=== PATIENT | female | born 1955 | race Caucasian/White ===

== ENCOUNTER → 2019-08-10 | Day surgery (SDC) | payer MEDICARE, OTHER ==
[2019-08-07 12:23] LABS: BASOPHILS # (AUTO) 0.1 (0.0-0.1); BASOPHILS % 0.6 % (0.0-1.0); EOSINOPHILS # (AUTO) 0.2 (0.0-0.4); EOSINOPHILS % 1.7 % (0.0-6.0); HEMATOCRIT 44.4 % (34.2-44.1); HEMOGLOBIN 14.7 g/dL (12.0-16.0); LYMPHOCYTES # (AUTO) 2.5 (1.0-3.2); MEAN CORPUSCULAR HEMOGLOBIN 30.1 pg (28-32); MEAN CORPUSCULAR HGB CONC 33.1 g/dL (31-35); MONOCYTES # (AUTO) 0.8 (0.2-0.8); MONOCYTES % 6.8 % (4.4-11.3); NEUTROPHILS # (AUTO) 8.8 (2.1-6.9); NEUTROPHILS % 70.5 % (38.7-80.0); PLATELET COUNT 233 x10e3/uL (140-360); RED BLOOD COUNT 4.88 x10e6/uL (3.6-5.1); RED CELL DISTRIBUTION WIDTH 12.4 % (11.7-14.4)
[2019-08-07 12:42] LABS: ALANINE AMINOTRANSFERASE 27 IU/L (0-55); ALBUMIN 3.7 g/dL (3.5-5.0); ALBUMIN/GLOBULIN RATIO 1.1 (0.8-2.0); ALKALINE PHOSPHATASE 89 IU/L (40-150); ANION GAP 12.1 mmol/L (8-16); BLOOD UREA NITROGEN 8 mg/dL (7-26); BUN/CREATININE RATIO 10 (6-25); CALCIUM 9.5 mg/dL (8.4-10.2); CARBON DIOXIDE 27 mmol/L (22-29); CHLORIDE 100 mmol/L (98-107); CREATININE, SERUM 0.81 mg/dL (0.57-1.11); EST GLOMERULAR FILTRATION RATE > 60 ML/MIN (60-); GLUCOSE 119 mg/dL (74-118); POTASSIUM 4.1 mmol/L (3.5-5.1); SODIUM 135 mmol/L (136-145)
--- NOTE | 2019-08-07 13:05 | Diagnostic Imaging Report ---
EXAMINATION: CHEST 2 VIEWS INDICATION: Pre-operative COMPARISON: None FINDINGS: LINES/TUBES:None LUNGS:The lungs are well-inflated. No focal consolidation or pulmonary edema. PLEURA:No pleural effusion or pneumothorax. MEDIASTINUM:The cardiomediastinal silhouette appears normal in size and shape. BONES/SOFT TISSUES:No acute osseous injury. ABDOMEN:No free air under the diaphragm. IMPRESSION: No focal pneumonia or pulmonary edema. Signed by: Marek Salguero MD on 08/07/2019 1:02 PM
[~2019-08-10] MED LIST: ASPIRIN81 MG PO; ATORVASTATIN CA20 MG PO; DEXAMETHASONE SOD PHOS INJ 4 MG/ML VIAL ONE; FENTANYL CITRATE/PF 100MCG/2 ML INJ ONE; HYDROCODON-ACE1 EAC9 PO; LIDOCAINE HCL 1% LOCAL INJ 20 ML VIAL ONE; LIDOCAINE HCL 2% LOCAL INJ 5 ML SDV VIAL INJ ONE; LISINOPRIL10 MG PO; MIDAZOLAM HCL 2 MG/2 ML VIAL ONE; NORCO 7.5-3251 EACH PO; ONDANSETRON HCL INJ 2MG/ML 2ML 2 MG/ML VIAL ONE; PROPOFOL IV EMULSION 10 MG/ML 20 ML VIAL ONE
--- OUTSIDE RECORDS SUMMARY | 2019-08-10 08:50 | XMS REPORT ---
[facility] Address Unknown Phone Unavailable Care Team Providers Care Hall Worker Name Role Phone Padmaja FRASER Unavailable Unavailable Problems This patient has no known problems. Allergies, Adverse Reactions, Alerts This patient has no known allergies or adverse reactions. Medications This patient has no known medications. Results Test Description Test Time Test Comments Text Results Atomic Results Result Comments CHEST 2 VIEWS 2019-08-07 13:01:00 [place] [address] Patient Name: RIVAS LOPEZ MR #: [id number] : 1955 Age/Sex: 64/F Req #: [id number] Adm Physician: Ordered by: MARISABEL FRASER MD Report #: [id number] Location: OR Room/Bed: Procedure: [id number] DX/CHEST 2 VIEWS Exam Date: Exam Time: REPORT STATUS: Signed EXAMINATION: CHEST 2 VIEWS INDICATION: Pre-operative COMPARISON: None FINDINGS: LINES/TUBES:None LUNGS:The lungs are well- inflated. No focal consolidation or pulmonary edema. PLEURA:No pleural effusion or pneumothorax. MEDIASTINUM:The cardiomediastinal silhouette appears normal in size and shape. BONES/SOFT TISSUES:No acute osseous injury. ABDOMEN:No free air under the diaphragm. IMPRESSION: No focal pneumonia or pulmonary edema. Signed by: Adrian Guzman MD on 08/07/2019 1:02 PM Dictated By: ADRIAN GUZMAN MD 1302 Transcribed By: PRISCILLA on 08/07/19 1302 COPY TO: MARISABEL FRASER MD BREAST STEREO CORE BIOPSY LEFT 2019-01-24 15:47:25 - BREAST STEREO CORE BIOPSY LEFTSTEREOTACTIC GUIDED BIOPSY LEFT BREAST USING VACUUM DEVICE WITH MARKING DEVICE INSERTED AND POST MAMMOGRAPHIC IMAGIN01/19/2019CLINICAL: Stereotactic Biopsy, left breast. Comparison is made to exams dated 01/05/2019 mammogram, 07/04/2018 mammogram, and [facility] A stereotactic guided biopsy was performed for the area of calcifications located in the left breast at 12 o'clock. This was described on the previous mammography report. The skin was prepped in the usual manner. Local anesthetic was administered to the access site. The abnormality was approached using an upright digital mammography unit. A 10 gauge biopsy needle was placed adjacent to the abnormality under computer guidance and confirmatory stereotactic mammogr aphy images were obtained to document needle placement. Once the needle was documented to be in the correct location, multiple specimens were obtained using the Strap system. A clip was inserted into the biopsy cavity. A skin closure strip was applied to the access site. Post procedure mammographic imaging was obtained. The specimens were sent to the laboratory for pathological analysis. IMPRESSION: STEREOTACTIC GUIDED BIOPSY HIGH RISK BENIGN Stereotactic guided biopsy of the area of calcifications in the left breast at 12 o'clock was performed. 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 Janina Bishop M.D. dm/:01/24/2019 15:47:25 Entry: - 01/24/2019 16:16:40Imaging Technologist: Jihan De , [facility] BREAST STEREO CORE BIOPSY LEFT 2019-01-24 15:47:25 - BREAST STEREO CORE BIOPSY LEFTSTEREOTACTIC GUIDED BIOPSY LEFT BREAST USING VACUUM DEVICE WITH MARKING DEVICE INSERTED AND POST MAMMOGRAPHIC IMAGIN01/19/2019CLINICAL: Stereotactic Biopsy, left breast. Comparison is made to exams dated 01/05/2019 mammogram, 07/04/2018 mammogram, and 05/18/2018 [facility]. A stereotactic guided biopsy was performed for the area of calcifications located in the left breast at 12 o'clock. This was described on the previous mammography report. The skin was prepped in the usual manner. Local anesthetic was administered to the access site. The abnormality was approached using an upright digital mammography unit. A 10 gauge biopsy needle was placed adjacent to the abnormality under computer guidance and confirmatory stereotactic mammogr aphy images were obtained to document needle placement. Once the needle was documented to be in the correct location, multiple specimens were obtained using the [employer] system. A clip was inserted into the biopsy cavity. A skin closure strip was applied to the access site. Post procedure mammographic imaging was obtained. The specimens were sent to the laboratory for pathological analysis. IMPRESSION: STEREOTACTIC GUIDED BIOPSY HIGH RISK BENIGN Stereotactic guided biopsy of the area of calcifications in the left breast at 12 o'clock was performed. 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 Janina Bishop M.D. dm/:01/24/2019 15:47:25 Entry: - 01/24/2019 16:16:40Imaging Technologist: Jihan SANCHES, [facility]- DIAG MAMM BILATERAL CAD DIGITAL 2019-01-05 15:04:12 - DIAG MAMM BILATERAL CAD DIGITALBILATERAL DIGITAL DIAGNOSTIC MAMMOGRAM WITH CAD: 01/05/2019CLINICAL: 6 Month follow-up. Current mammographic images were evaluated by either a [employer] M-Vu or a [employer] ImageChecker CAD (computer aided detection system). Comparison is made to exam dated 05/18/2018 mammogram - [facility] The tissue of both breasts is predominantly fatty. There are st able coarse calcifications in the right breast at 11 o'clock. There are new clustered pleomorphic calcifications in the left breast at 12 o'clock. No other significant masses or calcifications are seen in either breast. IMPRESSION: SUSPICIOUS OF MALIGNANCYThe stable coarse calcifications in the right breast at 11 o'clock are benign. The new clustered pleomorphic calcifications in the left breast at 12 o'clock needs histological evaluation. A stereotactic biopsy is recommended. Results were discussed with the patient.Janina Bishop M.D. dm/:01/05/2019 15:04:12 Entry: enrique - 01/05/2019 15:18:42Imaging Technologist: Hui SANCHES, [facility]-FWletter sent: BIRADS 4/5 Biopsy Mammogram BI-RADS: 4c Suspicious abnormality - moderate concern but not classic for malignancy DIAG MAMM BILATERAL CAD DIGITAL 2019-01-05 15:04:12 - DIAG MAMM BILATERAL CAD DIGITALBILATERAL DIGITAL DIAGNOSTIC MAMMOGRAM WITH CAD: 01/05/2019CLINICAL: 6 Month follow-up. Current mammographic images were evaluated by either a [employer] M[employer]Vu or a [employer] CAD (computer aided detection system). Comparison is made to exam dated 05/18/2018 mammogram - [facility] The tissue of both breasts is predominantly fatty. There are st able coarse calcifications in the right breast at 11 o'clock. There are new clustered pleomorphic calcifications in the left breast at 12 o'clock. No other significant masses or calcifications are seen in either breast. IMPRESSION: SUSPICIOUS OF MALIGNANCYThe stable coarse calcifications in the right breast at 11 o'clock are benign. The new clustered pleomorphic calcifications in the left breast at 12 o'clock needs histological evaluation. A stereotactic biopsy is recommended. Results were discussed with the patient.Janina Bishop M.D. dm/:01/05/2019 15:04:12 Entry: - 01/05/2019 15:18:42Imaging Technologist: Hui Johnson , [facility]: BIRADS 4/5 Biopsy Mammogram BI-RADS: 4c Suspicious abnormality - moderate concern but not classic for malignancy BREAST ULTRASOUND BILATERAL 2018-07-04 16:33:51 - BREAST ULTRASOUND BILATERALULTRASOUND OF BOTH BREASTS AND BOTH AXILLA: 07/04/2018CLINICAL: Abnormal mammogram. Comparison is made to exam dated 05/18/2018 mammogram - [facility] Real-time ultrasound of both breasts and both axilla was performed. No abnormalities were seen sonographically in either breast or either axilla. IMPRESSION: PROBABLY BENIGN - FOLLOW-UP RECOMMENDEDThere is no sonographic evidence of malignancy. A follow-up mammogram in 6 months is recommended to demonstrate stability of calcifications in the right breast. Janina Bishop M.D. dm/:07/04/2018 16:33:51 Entry: [facility] 07/05/2018 15:40:40Imaging Technologist: Adamaris Hernandez RDMS FW, [facility]-FWletter sent: Short Term Follow Up Ultrasound BI-RADS: 3 Probably benign DIAG MAMM RIGHT CAD DIGITAL 2018-07-04 16:32:35 - DIAG MAMM RIGHT CAD DIGITALUNILATERAL RIGHT DIGITAL DIAGNOSTIC MAMMOGRAM WITH CAD: 07/04/2018CLINICAL: Abnormal Mammogram. Current mammographic images were evaluated by either a [employer] M[employer]Vu or a [employer] ImageChecker CAD (computer aided detection system). Comparison is made to exam dated 05/18/2018 mammogram - [facility] The tissue of the right breast is predominantly fatty. There are coarse calcifications in the right breast at 9 o'clock. No other significant masses or calcifications are seen in the breast. IMPRESSION: PROBABLY BENIGNUltrasound pending for additional evaluation. The calcifications in the right breast are probably benign. A follow-up mammogram in 6 months is recommended. Janina Bishop M.D. dm/:07/04/2018 16:32:35 Entry: - 07/05/2018 14:20 :21Imaging Technologist: Jihan De , [facility] BI-RADS: 3 Probably benign SCR MAMM BILATERAL ASA CAD DIGITAL 2018-06-02 08:26:01 - SCR MAMM BILATERAL ASA CAD DIGITALBILATERAL DIGITAL SCREENING MAMMOGRAM 3D/2D WITH CAD: 05/18/2018CLINICAL: Asymptomatic. Digital breast tomosynthesis was performed in addition to routine CC and MLO views. Current mammographic images were evaluated by either a [employer] M[employer]Vu or a [employer] ImageChecker CAD (computer aided detection system). No prior exams were available for comparison. The tissue of both breasts is predominantly fatty. There grouped coarse heterogeneous calcifications in the right breast at 9 o'clock, middle depth. No other significant masses, calcifications, or other findings are seen in either breast. IMPRESSION: INCOMPLETE ASSESSMENT: ADDITIONAL IMAGING EVALUATION RECOMMENDEDThe grouped calcifications in the right breast is indeterminate. Comparison to prior exams is recommended. If new or if prior exams cannot be obtained, then magnifications views are recommended.Mary Lopez M.D. el/:06/02/2018 08:26:01 Attending Technologist: Sofia Abraham , [facility]- Imaging Technologist: Nancy Fraser , [facility]-FWletter sent: Additional Imaging Mammogram BI-RADS: 0 Indeterminate SCR MAMM BILATERAL ASA CAD DIGITAL 2018-06-02 08:26:01 - SCR MAMM BILATERAL ASA CAD DIGITALBILATERAL DIGITAL SCREENING MAMMOGRAM 3D/2D WITH CAD: 05/18/2018CLINICAL: Asymptomatic. Digital breast tomosynthesis was performed in addition to routine CC and MLO views. Current mammographic images were evaluated by either a [employer] M-Vu or a [employer] CAD (computer aided detection system). No prior exams were available for comparison. The tissue of both breasts is predominantly fatty. There grouped coarse heterogeneous calcifications in the right breast at 9 o'clock, middle depth. No other significant masses, calcifications, or other findings are seen in either breast. IMPRESSION: INCOMPLETE ASSESSMENT: ADDITIONAL IMAGING EVALUATION RECOMMENDEDThe grouped calcifications in the right breast is indeterminate. Comparison to prior exams is recommended. If new or if prior exams cannot be obtained, then magnifications views are recommended.Mary Lopez M.D. el/:06/02/2018 08:26:01 Attending Technologist: Sofia SANCHES, [facility]- FWImaging Technologist: Nancy SANCHES, [facility]-FWletter sent: Additional Imaging Mammogram BI-RADS: 0 Indeterminate
[2019-08-10 14:30] VITALS: BP 153/80
--- NOTE | 2019-08-10 19:12 | Operative Report ---
DATE OF PROCEDURE: 08/10/2019 SURGEON: Paul Fraser MD PREOPERATIVE DIAGNOSIS: Left breast mass, lobular carcinoma in situ by needle biopsy. POSTOPERATIVE DIAGNOSIS: Left breast mass, lobular carcinoma in situ by needle biopsy. OPERATION PERFORMED: Left partial mastectomy with preoperative needle localization and intraoperative specimen mammography. ANESTHESIA: General. COMPLICATIONS: None. ESTIMATED BLOOD LOSS: Minimal. DESCRIPTION OF PROCEDURE: With the patient lying in bed in the supine position under good general anesthesia, the left breast was prepped with Betadine solution and draped in the usual manner. The patient had undergone a previous needle localization of the area in question. The area around the wire was then infiltrated with 0.25% Marcaine solution. An incision was made and the wire was followed to the area in question. The area in question was then slowly and carefully encircled with normal tissue all the way around and completely removed, and then sent for specimen mammography, which did confirm that the area in question had been removed, and the specimen was then sent for pathology. The whole area was thoroughly irrigated. Perfect hemostasis was ascertained. The breast tissue was then reapproximated with interrupted sutures of 2-0 chromic and the skin was closed with subcuticular 5-0 Vicryl. Benzoin, Steri-Strips, and dressings were applied. The sponge, lap, and needle count was correct. The patient tolerated the procedure well and returned to the recovery room in stable condition. Paul Fraser MD JLConnie/MODL /[id number]
--- NOTE | 2019-08-11 10:03 | Diagnostic Imaging Report ---
#[id number] - BRSPECLT SPECIMEN: 08/10/2019 Correlation is made to exams dated: 08/10/2019 localization - [facility] and 01/19/2019 mammogram - [facility]. Mammographic image of surgical specimen demonstrates successful excision of breast tissue which includes the localized marker clip. IMPRESSION: SPECIMEN Successful excision of breast tissue which includes the localized marker clip. Follow-up with ACR/ACS guidelines. ADRIAN GUZMAN M.D. kw/:08/10/2019 13:24:39 Supervisor Polishing: Kristie MONTEMAYOR(Connie)(M), [facility]
--- NOTE | 2019-08-11 10:03 | Diagnostic Imaging Report ---
THIS REPORT HAS BEEN AMENDED. #[id number] - [id number] WIRE LOCALIZATION LEFT BREAST WITH POST MAMMOGRAPHIC IMAGIN08/10/2019 Correlation is made to exams dated: 01/19/2019 mammogram, 01/19/2019 stereotactic biopsy, 01/05/2019 mammogram and 07/04/2018 mammogram - [facility]. A wire localization was performed for the marker clip located in the left breast at 12 o'clock anterior depth. The skin was prepped in the usual manner. A wire was inserted into the targeted area. Post placement mammographic imaging was obtained. IMPRESSION: WIRE LOCALIZATION Wire localization for the marker clip in the left breast at 12 o'clock anterior depth was successful. Follow-up with ACR/ACS guidelines. ADRIAN baxter/timbo:08/10/2019 12:50:15 Documentation Clerk: Kristie ADAME)(Izaiah), [facility] [id number] AMENDMENT: 09/05/2019 ADRIAN GUZMAN M.D. Pathology has become available for this localization. 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 This is concordant with imaging findings.
== END | disposition home or self-care (01) ==
LOC: OR 08:36
PROVIDERS: ATTEND Surgery
DX: D05.02 Lobular carcinoma in situ of left breast (principal); D24.2 Benign neoplasm of left breast; I10 Essential (primary) hypertension; E78.5 Hyperlipidemia, unspecified; J43.9 Emphysema, unspecified; Z01.810 Encounter for preprocedural cardiovascular examination; Z01.812 Encounter for preprocedural laboratory examination; Z01.818 Encounter for other preprocedural examination
CPT/HCPCS: 19281; 19301; 36415; 71046; 76098; 80053; 85025; 88307; 93005; J1100; J2001 ×2; J2250; J2405; J2704; J3010; 88309

== ENCOUNTER → 2020-06-14 | Outpatient (CLI) | payer MEDICARE, OTHER ==
[~2020-06-14] MED LIST changes: -DEXAMETHASONE SOD PHOS INJ 4 MG/ML VIAL ONE; -FENTANYL CITRATE/PF 100MCG/2 ML INJ ONE; -LIDOCAINE HCL 1% LOCAL INJ 20 ML VIAL ONE; -LIDOCAINE HCL 2% LOCAL INJ 5 ML SDV VIAL INJ ONE; -MIDAZOLAM HCL 2 MG/2 ML VIAL ONE; -ONDANSETRON HCL INJ 2MG/ML 2ML 2 MG/ML VIAL ONE; -PROPOFOL IV EMULSION 10 MG/ML 20 ML VIAL ONE
== END ==
LOC: MAMMO 13:08
PROVIDERS: ATTEND Internal Medicine
DX: Z12.31 Encounter for screening mammogram for malignant neoplasm of breast (principal)
CPT/HCPCS: 77067

== ENCOUNTER → 2020-11-19 | Day surgery (SDC) | payer MEDICARE, OTHER ==
[2020-11-18 12:46] LABS: BASOPHILS # (AUTO) 0.1 (0.0-0.1); BASOPHILS % 0.5 % (0.0-1.0); EOSINOPHILS # (AUTO) 0.1 (0.0-0.4); HEMATOCRIT 48.2 % (34.2-44.1); HEMOGLOBIN 15.9 g/dL (12.0-16.0); LYMPHOCYTES # (AUTO) 2.3 (1.0-3.2); LYMPHOCYTES % 18.9 % (18.0-39.1); MEAN CORPUSCULAR HEMOGLOBIN 29.2 pg (28-32); MEAN CORPUSCULAR VOLUME 88.4 fL (81-99); MONOCYTES # (AUTO) 0.8 (0.2-0.8); MONOCYTES % 6.3 % (4.4-11.3); NEUTROPHILS # (AUTO) 8.9 (2.1-6.9); NEUTROPHILS % 72.8 % (38.7-80.0); PLATELET COUNT 243 x10e3/uL (140-360); RED BLOOD COUNT 5.45 x10e6/uL (3.6-5.1); RED CELL DISTRIBUTION WIDTH 12.9 % (11.7-14.4)
[2020-11-18 13:41] LABS: ALBUMIN 4.3 g/dL (3.5-5.0); ALBUMIN/GLOBULIN RATIO 1.1 (0.8-2.0); ANION GAP 17.4 mmol/L (8-16); CALCIUM 9.8 mg/dL (8.4-10.2); CREATININE, SERUM 0.94 mg/dL (0.57-1.11); POTASSIUM 3.4 mmol/L (3.5-5.1)
[2020-11-19] VITALS (7 sets, daily range): BP systolic 98–118; BP diastolic 47–65
[~2020-11-19] MED LIST changes: +ALPRAZOLAM 0.5 MG TAB ONE; +CITALOPRAM HBR20 MG PO; +DIPHENHYDRAMINE HCL 25 MG CAP ONE; +FARXIGA10 MG PO; +FENTANYL CITRATE/PF 100MCG/2 ML INJ ONE; +HEPARIN SOD (PORCINE) 1000 UNIT/ML 30ML ONE; +HEPARIN SOD/SOD CHLORIDE 2,000 ML ONE; +IOPAMIDOL 370 MG/ML 200 ML INFUS..BTL INJ ONE; +LIDOCAINE HCL 2% LOCAL 20 ML VIAL ONE; +LIPITOR20 MG PO; +LOSARTAN POTASS25 MG PO; +MIDAZOLAM HCL 2 MG/2 ML VIAL ONE; +SODIUM CHLORIDE 0.9% 1000ML 1,000 ML ONE
== END | disposition home or self-care (01) ==
LOC: CATH LAB 10:36
PROVIDERS: ATTEND Internal Medicine Interventional Cardiology
DX: I25.118 Atherosclerotic heart disease of native coronary artery with other forms of angina pectoris (principal); R94.39 Abnormal result of other cardiovascular function study; E11.9 Type 2 diabetes mellitus without complications; Z01.812 Encounter for preprocedural laboratory examination; Z20.822 Contact with and (suspected) exposure to COVID-19; Z79.82 Long term (current) use of aspirin; Z79.84 Long term (current) use of oral hypoglycemic drugs; Z68.32 Body mass index [BMI] 32.0-32.9, adult; Z87.891 Personal history of nicotine dependence; Z82.49 Family history of ischemic heart disease and other diseases of the circulatory system; Z82.3 Family history of stroke
CPT/HCPCS: 36415; 76937; 80053; 83880; 85025; 93454; C1769; C1887; J2001; J2250; J3010; J7030; Q9967; U0002; 99152; J1644

== ENCOUNTER → 2021-09-16 | Outpatient (CLI) | payer MEDICARE, OTHER ==
[~2021-09-16] MED LIST changes: -ALPRAZOLAM 0.5 MG TAB ONE; -DIPHENHYDRAMINE HCL 25 MG CAP ONE; -FENTANYL CITRATE/PF 100MCG/2 ML INJ ONE; -HEPARIN SOD (PORCINE) 1000 UNIT/ML 30ML ONE; -HEPARIN SOD/SOD CHLORIDE 2,000 ML ONE; -IOPAMIDOL 370 MG/ML 200 ML INFUS..BTL INJ ONE; -LIDOCAINE HCL 2% LOCAL 20 ML VIAL ONE; -MIDAZOLAM HCL 2 MG/2 ML VIAL ONE; -SODIUM CHLORIDE 0.9% 1000ML 1,000 ML ONE
== END ==
LOC: MAMMO 12:04
PROVIDERS: ATTEND Nurse Practitioner Adult Health
DX: Z12.31 Encounter for screening mammogram for malignant neoplasm of breast (principal)
CPT/HCPCS: 77067

== ENCOUNTER → 2023-01-01 | Outpatient (CLI) | payer MEDICARE, OTHER | LOC: MAMMO 12:34 | PROVIDERS: ATTEND Nurse Practitioner Adult Health | DX: Z12.31 Encounter for screening mammogram for malignant neoplasm of breast (principal); Z13.820 Encounter for screening for osteoporosis | CPT/HCPCS: 77067; 77080 ==

== ENCOUNTER → 2025-01-08 | Outpatient (REF) | payer MEDICARE, OTHER | LOC: MAMMO 10:46 | PROVIDERS: ATTEND Internal Medicine | DX: Z12.31 Encounter for screening mammogram for malignant neoplasm of breast (principal) | CPT/HCPCS: 77067 ==